=== PATIENT | female | born 1975 | race Caucasian/White ===

== ENCOUNTER 2022-10-16 03:29 | Emergency (ER) | payer BC ==
[~2022-10-16] VITALS: Ht 170.2 cm; Wt 63.5 kg
[2022-10-16] MEDS ORDERED: KETOROLAC TROMETHAMINE INJ 30 MG/ML VIAL ONE (03:51)
[2022-10-16] MEDS ORDERED: ONDANSETRON HCL/PF 4 MG/2 ML VIAL ONE ×2 (03:51→04:27)
[2022-10-16] MEDS ORDERED: ONDANSETRON HCL/PF 4 MG/2 ML VIAL IVP ONE (04:00)
[2022-10-16] MEDS ORDERED: IV NS 0.9% 1,000 ML BAG IV ONE (04:00)
[2022-10-16] MEDS ORDERED: KETOROLAC TROMETHAMINE INJ 30 MG/ML VIAL IV ONE (04:00)
--- NOTE | 2022-10-16 04:09 | NUR ---
mikhail from home, c/o abd pain +nausea vomiting. Patient admits on drinking alcohol. On room air, breathing evenly and unlabored. kept comfortable, will continue to monitor accordingly.
[2022-10-16 04:10] LABS: BASOPHILS # (AUTO) 0.1 K/uL (0.0-0.2); BASOPHILS % (AUTO) 0.6 % (0.0-2.0); EOSINOPHILS % (AUTO) 0.4 % (0.0-6.0); HEMATOCRIT 39 % (33-45); HEMOGLOBIN 13.1 g/dL (11.5-14.8); LYMPHOCYTES # (AUTO) 1.7 K/uL (0.8-4.8); LYMPHOCYTES % (AUTO) 16.7 % (20.0-44.0); MEAN CORPUSCULAR HGB CONC 33 g/dl (31.0-36.0); MEAN CORPUSCULAR VOLUME 92 fL (82-100); MONOCYTES # (AUTO) 0.7 K/uL (0.1-1.30); MONOCYTES % (AUTO) 7.3 % (2.0-12.0); NEUTROPHILS # (AUTO) 7.6 K/uL (1.8-8.9); PLATELET COUNT (AUTO) 380 K/uL (150-450); RED BLOOD CELL COUNT(AUTO) 4.28 MIL/uL (4.0-5.2); WHITE BLOOD COUNT (AUTO) 10.1 K/uL (4.3-11.0)
[2022-10-16 04:38] LABS: BILIRUBIN,URINE NEGATIVE (NEGATIVE); COLOR,URINE YELLOW (YELLOW); LEUKOCYTE ESTERASE ,URINE NEGATIVE (NEGATIVE); NITRITE, URINE NEGATIVE (NEGATIVE); PH,URINE 6.5 (5.0-8.0); PROTEIN,URINE NEGATIVE (NEGATIVE); UGLUCOSE NEGATIVE (NEGATIVE); UROBILINOGEN,URINE 0.2 EU/dL (0.2)
[2022-10-16 04:45] LABS: ALANINE AMINOTRANSFERASE 357 U/L (12-78); ALBUMIN 3.7 g/dL (3.4-5.0); ALKALINE PHOSPHATASE 58 U/L (46-116); ASPARTATE AMINOTRANSFERASE 129 U/L (15-37); BILIRUBIN,DIRECT 0.2 mg/dL (0.0-0.2); BILIRUBIN,TOTAL 0.5 mg/dL (0.2-1.0); CALCIUM, SERUM 9.2 mg/dL (8.5-10.1); CARBON DIOXIDE 23 mmol/L (21-32); CHLORIDE 106 mmol/L (98-107); GLUCOSE 145 mg/dL (74-106); LIPASE 134 U/L (73-393); SODIUM SERUM 141 mmol/L (136-145); TOTAL PROTEIN, SERUM 6.6 g/dL (6.4-8.2); UREA NITROGEN, BLOOD 8 mg/dL (7-18)
[2022-10-16 04:47] LABS: POTASSIUM 2.8 mmol/L (3.5-5.1)
[2022-10-16] MEDS ORDERED: POTASSIUM CHLORIDE 20 MEQ TAB.PRT.SR PO ONE ×2 (05:00→05:03)
[2022-10-16] MEDS ORDERED: ONDANSETRON HCL/PF 4 MG/2 ML VIAL IV ONE (05:00)
--- NOTE | 2022-10-16 05:05 | NUR ---
CAME BACK FROM CT DEPT
[2022-10-16] MEDS ORDERED: MORPHINE SULFATE INJ 4 MG/ML DISP.SYRIN ONE (05:13)
[2022-10-16] MEDS ORDERED: KETO10TA2 PO (05:26)
[2022-10-16] MEDS ORDERED: HYDR-4209 PO (05:26)
[2022-10-16] MEDS ORDERED: ONDA4TAB11 PO (05:26)
[2022-10-16] MEDS ORDERED: MORPHINE SULFATE INJ 2 MG/ML DISP.SYRIN IV ONE (05:30)
--- NOTE | 2022-10-16 06:48 | NUR ---
Patient discharged to home in stable condition. Written and verbal after care instructions given. Patient verbalizes understanding of instruction. IV removed. Catheter intact and site benign. Pressure and 4x4 applied to site. No bleeding noted.
[2022-10-16 06:54] VITALS: BP 126/78
== END 2022-10-16 06:54 | disposition home or self-care (01) ==
LOC: ER 03:38
DX: R10.9 Unspecified abdominal pain (principal); R11.2 Nausea with vomiting, unspecified; Z60.2 Problems related to living alone; Z79.899 Other long term (current) drug therapy
CPT/HCPCS: 99285; 74176; 96374; 76856; 96375; 96361; 96376; 85025; 80048; 83690; 80076; 84703; 81003; 36415; 84484; 84702; J2270; J1885; J2405 ×2; J7030; G0168

== ENCOUNTER 2023-02-09 15:24 | Emergency (ER) | payer BC ==
[~2023-02-09] VITALS: Ht 167.6 cm; Wt 54.4 kg
[~2023-02-09 15:24] MED LIST: HYDR-4209 PO; KETO10TA2 PO; ONDA4TAB11 PO
[2023-02-09 15:29] VITALS: TEMP 209.1
--- NOTE | 2023-02-09 17:14 | NUR ---
20G STARTED BLOOD DRAWN AND SENT WITH LAB
[2023-02-09] MEDS ORDERED: ONDANSETRON HCL/PF 4 MG/2 ML VIAL ONE (17:24)
[2023-02-09] MEDS ORDERED: KETOROLAC TROMETHAMINE INJ 30 MG/ML VIAL ONE (17:25)
[2023-02-09] MEDS: KETOROLAC TROMETHAMINE INJ 30 MG/ML VIAL IV ONE (17:31)
[2023-02-09] MEDS: ONDANSETRON 4 MG TAB.RAPDIS SL ONE (17:32)
[2023-02-09 17:37] LABS: BASOPHILS % (AUTO) 0.4 % (0.0-2.0); EOSINOPHILS % (AUTO) 0.1 % (0.0-6.0); HEMATOCRIT 42 % (33-45); HEMOGLOBIN 13.6 g/dL (11.5-14.8); LYMPHOCYTES # (AUTO) 0.8 K/uL (0.8-4.8); LYMPHOCYTES % (AUTO) 6.3 % (20.0-44.0); MEAN CORPUSCULAR HGB CONC 33 g/dl (31.0-36.0); MEAN CORPUSCULAR VOLUME 93 fL (82-100); MONOCYTES # (AUTO) 0.6 K/uL (0.1-1.30); MONOCYTES % (AUTO) 4.4 % (2.0-12.0); NEUTROPHILS # (AUTO) 11.1 K/uL (1.8-8.9); NEUTROPHILS % (AUTO) 88.8 % (43.0-81.0); PLATELET COUNT (AUTO) 393 K/uL (150-450); RED BLOOD CELL COUNT(AUTO) 4.44 MIL/uL (4.0-5.2); WHITE BLOOD COUNT (AUTO) 12.5 K/uL (4.3-11.0)
[2023-02-09 17:56] LABS: CALCIUM, SERUM 9.5 mg/dL (8.5-10.1); CARBON DIOXIDE 17 mmol/L (21-32); CHLORIDE 98 mmol/L (98-107); CREATININE 0.9 mg/dL (0.6-1.3); GLUCOSE 137 mg/dL (74-106); POTASSIUM 3.1 mmol/L (3.5-5.1); SODIUM SERUM 132 mmol/L (136-145); UREA NITROGEN, BLOOD 11 mg/dL (7-18)
[2023-02-09] MEDS ORDERED: LORAZEPAM INJ 2 MG/ML VIAL ONE (18:12)
[2023-02-09 18:14] LABS: ALANINE AMINOTRANSFERASE 23 U/L (12-78); ALKALINE PHOSPHATASE 62 U/L (46-116); ASPARTATE AMINOTRANSFERASE 17 U/L (15-37); BILIRUBIN,DIRECT 0.2 mg/dL (0.0-0.2); BILIRUBIN,TOTAL 1.2 mg/dL (0.2-1.0); TOTAL PROTEIN, SERUM 7.4 g/dL (6.4-8.2)
[2023-02-09] MEDS: LORAZEPAM INJ 2 MG/ML VIAL IV ONE (18:16)
[2023-02-09] MEDS: IV NS 0.9% 1,000 ML BAG IV ONE (18:16)
[2023-02-09 18:20] LABS: LIPASE 70 U/L (73-393)
[2023-02-09] MEDS ORDERED: POTASSIUM CHLORIDE 20 MEQ POWDER PACKET ONE (18:58)
[2023-02-09] MEDS: POTASSIUM CHLORIDE 20 MEQ POWDER PACKET PO ONE (19:14)
[2023-02-09] MEDS ORDERED: ONDA4TAB5 PO (19:23)
--- NOTE | 2023-02-09 19:52 | NUR ---
Discharge pt, per MD's order. Pt educated on importance of following up with PCP, and specialist. PAtietn educated on importance of seeking Emergency services if needed after discharge. Daughter at bedside, per pts request, both pt and daughter verbalized agreement.
[2023-02-09 19:53] VITALS: BP 148/90; O2SAT 100
[2023-02-09] MEDS ORDERED: ACETAMINOPHEN ES 500 MG TABLET ONE (20:04)
== END 2023-02-09 19:57 | disposition home or self-care (01) ==
LOC: ER 15:39
DX: R11.2 Nausea with vomiting, unspecified (principal); Z79.899 Other long term (current) drug therapy
CPT/HCPCS: 99284; 96374; 96361; 96375; 93005; 85025; 80048; 83690; 80076; 36415; 84484; 83880; 84702; J2060; J1885; J2405; J7030